=== PATIENT | male | born 1945 | race American Indian/Alaskan Native ===

== ENCOUNTER 2024-08-16 20:50 | Emergency (ER) | payer OTHER, SELFPAY ==
[2024-08-16 20:53] VITALS: BP 197/89
[2024-08-16 21:19] LABS: Hematocrit 38.6 % (39.0-52.0); Hemoglobin 12.9 g/dL (13.0-18.0); Mean Corp Hgb Conc. 33.4 g/dL (33.0-37.0); Mean Corpuscular Volume 90.8 fL (80.0-94.0); Nucleated Red Blood Cells % 0 % (-); Platelet Count 224 10^3/uL (130-400); Red Cell Dist. Width 13.9 % (11.5-14.5)
[2024-08-16 21:34] LABS: ALT (SGPT) 48 U/L (0-50); AST (SGOT) 87 U/L (17-59); Albumin 5.0 g/dl (3.5-5.0); Alkaline Phosphatase 61 U/L (38-126); Blood Urea Nitrogen 24 mg/dl (9-20); Calcium 9.8 mg/dl (8.4-10.2); Carbon Dioxide 25 mmol/L (22-30); Chloride 110 mmol/L (98-107); Glucose 102 mg/dl (70-99); Potassium 4.8 mmol/L (3.5-5.1); Sodium 144 mmol/L (135-145); Total Protein 8.3 g/dl (6.3-8.2); eGFR 47.65
--- NOTE | 2024-08-16 22:14 | ED.GENMED ---
History of Present Illness
General
Chief Complaint: Blood Pressure Problem
Time Seen by Provider: 08/16/24 22:12
History of Present Illness
History of Present Illness:
79-year-old male history of hypertension, hyperlipidemia, cardiac bypass, mitral valve replacement presenting with hypertension. Daughter states that patient was randomly taking blood pressure was found to be 180s/110s prompting ED arrival.
Patient denies any complaints including no chest pain, shortness of breath, numbness, weakness, tingling or dizziness. Of note patient was found to be hypertensive in PCP office 2 weeks ago, increased lisinopril from 2.5 to 5 mg daily. Patient
states he has been compliant with medications.
Phy Exam
Physical Exam
Physical Exam:
General: Alert, no acute distress
Head: NCAT
Eyes: clear conjunctiva, PERRLA, EOMI
Neck: supple
Cardiac: regular rate and rhythm, no murmur
Lungs: clear to auscultation bilaterally. No wheezes, rales, or rhonchi. Speaking full unlabored sentences. No respiratory distress.
Abdomen: soft, nondistended nontender. No rebound or guarding.
MSK: no lower extremity edema bilaterally. No deformity
Skin: warm, dry
Neuro: Alert and oriented x3. Cranial nerves II through XII grossly intact no focal deficits. Normal finger-nose. 5-5 strength bilateral lower extremities. Sensation intact.
Course
Orders/Labs/Results
Orders:
Orders
08/16/24 20:57
EKG [Electrocardiogram (*1)] Urgent
Reason for Study: Hypertension, Benign
EKG- Treatment ONCE
08/16/24 20:58
CBC/With Diff [Complete Blood Count/With Diff] Urgent
CMP [Comprehensive Metabolic Panel] Urgent
Abnormal Lab Results
08/16/24
20:58
RBC 4.25 L 10^6/uL
(4.70-6.10)
Hgb 12.9 L g/dL
(13.0-18.0)
Hct 38.6 L %
(39.0-52.0)
Absolute Monos (auto) 1.1 H 10^3/uL
(0.1-0.6)
Monocytes % 10.8 H %
(1.7-9.3)
Chloride 110 H mmol/L
(98-107)
BUN 24 H mg/dl
(9-20)
Creatinine 1.5 H mg/dL
(0.7-1.3)
Glucose 102 H mg/dl
(70-99)
AST 87 H U/L
(17-59)
Total Protein 8.3 H g/dl
(6.3-8.2)
08/16/24 20:58
08/16/24 20:58
Vital Signs
Initial and Last Documented VS:
Initial Vital Signs
Temp Pulse Resp BP Pulse Ox
98.7 F 75 15 197/89 98
08/16/24 20:53 08/16/24 20:53 08/16/24 20:53 08/16/24 20:53 08/16/24 20:53
Last Documented Vital Signs
Temp Pulse Resp BP Pulse Ox
98.7 F 75 18 168/82 98
08/16/24 20:53 08/16/24 20:53 08/16/24 22:24 08/16/24 22:40 08/16/24 22:45
MDM/Problems Addressed
MDM/Problems Addressed:
Patient presents to the emergency department for elevated blood pressure. Patient was hypertensive to 197/89 on arrival. Repeat blood pressure 175/88 with no interventions. Labs reviewed, unremarkable. EKG unremarkable. Patient neurologically
intact with no focal deficits. Discussed results with patient at bedside. Stable discharge home with PCP follow-up. Advised to continue taking medications, follow-up with PCP to titrate hypertensive medications
*Pulse Oximetry
SaO2: 98
Oxygen Mode of Delivery: Room air
Patient hypoxic: no
*EKG
Interpreted by ED Provider?: Yes (EKG shows normal sinus rhythm at [address] 168 QTc 434 no acute ischemic changes)
*Critical Care Note
Total Time (30-74mins, 75-104mins- exclusive of procedures): Not Applicable
ED Attending Note
-
Portions of this chart may have been created with voice recognition software.� Occasional wrong word or��sound alike� substitutions may have occurred due to the inherent limitations of voice recognition software.
Discharge Plan
Departure
Patient Disposition: Home (Routine Discharge)
Date of Disposition: 08/16/24
Time of Disposition: 22:36
Patient with high blood pressure during this ER visit?: Yes
Discharge Problem:
Hypertension
Instructions: High Blood Pressure (DC), BLOOD PRESSURE
Activity Restrictions/Additional Instructions:
Continue taking all medications as prescribed
Follow-up with primary care doctor in 1 to 2 days
Return to the emergency department for chest pain, difficulty breathing, numbness, weakness, tingling/worsening symptoms
Interventions
Interventions:
*Risk Screen - Suicide Last Done: 08/16/24 20:53
*General Assessment Last Done: 08/16/24 20:53
*Neglect/Abuse Screening Last Done: 08/16/24 20:53
*ED- Fall Risk Assessment Last Done: 08/16/24 22:50
*ED COVID-19 Vaccine History Last Done: 08/16/24 20:53
*Nursing Disposition Last Done: 08/16/24 22:50
ED- Cardiac Assessment Last Done: 08/16/24 22:24
ED- Neurological Assessment Last Done: 08/16/24 22:24
ED- Pulmonary Assessment Last Done: 08/16/24 22:24
Discharge Date and Time
Discharge Date/Time: 08/16/24 22:52
Print Language: PAKISTANI
[2024-08-16 22:21] VITALS: BP 175/88
[2024-08-16 22:40] VITALS: BP 168/82
== END 2024-08-16 22:52 | disposition home or self-care (01) ==
LOC: EMR 20:50
PROVIDERS: EMERGENCY PHYSICIAN Emergency Medicine; FAMILY PHYSICIAN Internal Medicine
DX: I10 Essential (primary) hypertension (principal); E78.5 Hyperlipidemia, unspecified; Z95.2 Presence of prosthetic heart valve; Z95.1 Presence of aortocoronary bypass graft; Z79.899 Other long term (current) drug therapy
CPT/HCPCS: 99283; 80053; 85025; 93005